=== PATIENT | male | born 1945 | race Caucasian/White ===

== ENCOUNTER 2019-02-01 10:14 | Emergency (ER) | payer MEDICARE ==
[~2019-02-01] VITALS: Ht 185.4 cm; Wt 109.0 kg
--- NOTE | 2019-02-01 10:15 | NUR ---
PT CHECKED IN WITH REGISTRATION AND STATES HAS TO GO TO THE BATHROOM, PT GIVEN SAMPLE CUP TO PROVIDE URINE.
[2019-02-01] MEDS ORDERED: normal saline 1000ML IV soln IVB ONE (11:00)
[2019-02-01 11:38] LABS: BASOPHILS # (AUTO) 0.2 X10'3 (0-0.2); BASOPHILS % (AUTO) 0.6 % (0-1); EOSINOPHILS # (AUTO) 0.2 X10'3 (0-0.9); EOSINOPHILS % (AUTO) 0.7 % (0-6); HEMOGLOBIN 12.7 g/dl (14.0-17.9); LYMPHOCYTES # (AUTO) 1.2 X10'3 (1.1-4.8); LYMPHOCYTES % (AUTO) 4.3 % (21-51); MEAN CORPUSCULAR HGB CONC 33.4 g/dL (33.0-36.5); MEAN CORPUSCULAR VOLUME 89.9 FL (78-98); MEAN PLATELET VOLUME 9.1 FL (7.4-10.4); MONOCYTES # (AUTO) 2.2 X10'3 (0-0.9); MONOCYTES % (AUTO) 7.6 % (2-12); NEUTROPHILS # (AUTO) 24.7 X10'3 (1.8-7.7); NEUTROPHILS % (AUTO) 86.8 % (42-75); PLATELET COUNT 274 X10'3 (140-440); RED BLOOD COUNT 4.23 X10'6 (4.70-6.10)
[2019-02-01 11:41] LABS: WHITE BLOOD COUNT 28.4 X10'3 (4.5-11.0)
[2019-02-01 11:50] LABS: ALANINE AMINOTRANSFERASE 35 U/L (12-78); ALBUMIN 2.4 G/DL (3.4-5.0); ALBUMIN/GLOBULIN RATIO 0.5 (1.1-1.5); ALKALINE PHOSPHATASE 141 IU/L (46-116); ANION GAP 11 (8-16); ASPARTATE AMINO TRANSFERASE 23 U/L (10-37); BLOOD UREA NITROGEN 11 MG/DL (7-18); BUN/CREATININE RATIO 12.1 (5.4-32.0); CALCIUM 9.3 MG/DL (8.5-10.1); CHLORIDE 96 MMOL/L (99-107); CREATININE 0.91 MG/DL (0.60-1.10); GLUCOSE 342 MG/DL (70-104); LIPASE 186 U/L (73-393); SODIUM 133 MMOL/L (135-145); TOTAL CARBON DIOXIDE 26.3 MMOL/L (24-32); TOTAL PROTEIN 6.8 G/DL (6.4-8.2); eGFR 82 ML/MIN
[2019-02-01 11:55] LABS: HEMOGLOBIN A1C 10.4 % (4.5-6.2)
[2019-02-01 11:57] LABS: ANISOCYTOSIS 1+; PLATELET ESTIMATE NORMAL; TOTAL CELLS COUNTED 100
[2019-02-01 12:18] LABS: CLARITY,URINE CLOUDY (Clear); COLOR,URINE YELLOW (Yellow); GLUCOSE, URINE 500 mg/dl (Neg); KETONES,URINE 40 mg/dl (Neg); LEUKOCYTE ESTERASE ,URINE NEGATIVE (Neg); NITRITES, URINE NEGATIVE (Neg); OCCULT BLOOD,URINE NEGATIVE (Neg); PH,URINE 5.5 (4.8-8.0); PROTEIN,URINE TRACE mg/dl (Neg)
[2019-02-01 12:23] LABS: UA COLLECTION TYPE CLN CATCH MIDSTREAM
[2019-02-01 12:24] LABS: AMORPHOUS URATES 4+; BACTERIA,URINE NONE SEEN /HPF (Neg); MUCUS STRANDS FEW /LPF (Neg); RBC,URINE NONE SEEN /HPF (0-2); SQUAMOUS EPITHELIAL CELL,UR NONE SEEN /LPF (FEW); WBC,URINE NONE SEEN /HPF (0-4)
[2019-02-01] MEDS ORDERED: iohexol 300mg/ml 100ml inj. ONE (13:48)
[2019-02-01] MEDS ORDERED: CefTRIAXone 250MG inj IM ONE (14:05)
[2019-02-01] MEDS ORDERED: CefTRIAXone 250MG IM Kit w/LIDOcaine IM ONE (14:15)
[2019-02-01] MEDS ORDERED: NO HOME MEDS (15:03)
[2019-02-01] MEDS ORDERED: insulin regular, human 10 units/0.1 ml syringe IV ONE (18:50)
--- NOTE | 2019-02-01 21:30 | NUR ---
PT PLACED ON HOSPITAL BED FOR COMFORT
--- NOTE | 2019-02-02 00:05 | NUR ---
NOTIFIED NORA CEVALLOS OF PT BG 302. NORA ORDERED HYPERGLYCEMIA PROTOCOL
[2019-02-02] MEDS ORDERED: dextrose 50%-water 50ml dispensing syringe IV PRN ×2 (00:10)
[2019-02-02] MEDS ORDERED: dextrose ORAL solution 15 GM/59 ML bottle PO PRN ×2 (00:10)
[2019-02-02] MEDS ORDERED: glucagon, human recombinant 1mg kit SUBCUT PRN (00:10)
[2019-02-02] MEDS: insulin Lispro (HumaLOG) vial - multi-dose SQ SCH ×3 (00:53→13:38)
--- NOTE | 2019-02-02 02:15 | NUR ---
PT CONTINUES TO TAKE OFF VS MONITORS DESPITE BEING TOLD TO KEEP ON.
--- NOTE | 2019-02-02 04:15 | NUR ---
PT SLEEPING, RR 14, EVEN AND UNLABORED
--- NOTE | 2019-02-02 05:59 | NUR ---
PT SLEEPING, NO APPARENT DISTRESS
--- NOTE | 2019-02-02 11:46 | NUR ---
I SPOKE WITH NIKKI ARZOLA E.D., WHO REQUESTS UPDATE ON PENDING ACUTE TRANSFER TO [place]. PATIENT HAS BEEN ACCEPTED BY DR ROSEN, [facility]. I SPOKE WITH DARLINE [phone], AT [facility]. SHE STATES THAT SHE HAS RECEIVED CLINICAL PACKET, AND REQUESTS UPDATED VITAL SIGNS, AND LABS, IF ANY. I FAXED UPDATED VS, AND BLOOD GLUCOSE LEVELS TO [phone]. SHE STATES THAT BED HAS BEEN REQUESTED, AND SHE WILL CALL ME WITH UPDATES. DISCUSSED WITH BETINA. WILL CONTINUE TO FOLLOW.
[2019-02-02 12:02] LABS: BASOPHILS # (AUTO) 0.1 X10'3 (0-0.2); BASOPHILS % (AUTO) 0.5 % (0-1); EOSINOPHILS # (AUTO) 0.1 X10'3 (0-0.9); EOSINOPHILS % (AUTO) 0.4 % (0-6); HEMATOCRIT 39.6 % (42.0-52.0); HEMOGLOBIN 12.6 g/dl (14.0-17.9); LYMPHOCYTES # (AUTO) 1.2 X10'3 (1.1-4.8); LYMPHOCYTES % (AUTO) 4.4 % (21-51); MEAN CORPUSCULAR HEMOGLOBIN 29.1 PG (27.0-31.0); MEAN CORPUSCULAR HGB CONC 31.9 g/dL (33.0-36.5); MEAN CORPUSCULAR VOLUME 91.4 FL (78-98); MONOCYTES # (AUTO) 1.8 X10'3 (0-0.9); MONOCYTES % (AUTO) 6.6 % (2-12); NEUTROPHILS # (AUTO) 24.6 X10'3 (1.8-7.7); NEUTROPHILS % (AUTO) 88.1 % (42-75); PLATELET COUNT 285 X10'3 (140-440); RED BLOOD COUNT 4.33 X10'6 (4.70-6.10)
[2019-02-02 12:09] LABS: WHITE BLOOD COUNT 27.9 X10'3 (4.5-11.0)
[2019-02-02 12:14] LABS: ALANINE AMINOTRANSFERASE 34 U/L (12-78); ALBUMIN 2.4 G/DL (3.4-5.0); ALBUMIN/GLOBULIN RATIO 0.6 (1.1-1.5); ALKALINE PHOSPHATASE 148 IU/L (46-116); ANION GAP 9 (8-16); ASPARTATE AMINO TRANSFERASE 27 U/L (10-37); BLOOD UREA NITROGEN 9 MG/DL (7-18); BUN/CREATININE RATIO 9.1 (5.4-32.0); CALCIUM 9.3 MG/DL (8.5-10.1); CHLORIDE 95 MMOL/L (99-107); CREATININE 0.99 MG/DL (0.60-1.10); GLUCOSE 407 MG/DL (70-104); POTASSIUM 3.8 MMOL/L (3.5-5.1); SODIUM 128 MMOL/L (135-145); TOTAL CARBON DIOXIDE 23.6 MMOL/L (24-32); TOTAL PROTEIN 6.7 G/DL (6.4-8.2); eGFR 74 ML/MIN
[2019-02-02 12:59] LABS: TOTAL CELLS COUNTED 100
[2019-02-02 13:01] LABS: PLATELET ESTIMATE NORMAL; POLYCHROMASIA FEW
[2019-02-02] MEDS ORDERED: normal saline 1000ML IV soln IVB ONE (13:15)
[2019-02-02 14:16] VITALS: BP 144/77
[2019-02-02] MEDS ORDERED: piperacillin/tazo 3.375gm/50ml 50 ML IV ONE (15:45)
--- NOTE | 2019-02-02 16:51 | NUR ---
PATIENT HAS BEEN ACCEPTED AT [facility]. [address] [place] [id number] DR WHIPPLE IS THE ACCEPTING HOSPITALIST. [facility] WILL BE PICKING PATIENT UP BETWEEN 1900 AND 193. DISCUSSED WITH MARJ RUANO. IN THE EVENT THAT [facility] BECOMES OVERWHELMED WITH 911 CALLS, [facility] WILL BE CALLED. I CALLED YANDYBRYUriah AT [facility] [phone], AND NOTIFIED HER OF PICKUP TIME, AND BACKUP PLAN TO GO WITH [facility].
--- NOTE | 2019-02-02 17:21 | NUR ---
[facility] [employer]NAL [employer] SERVICE AGENT TIME BY MARIA DOLORES OLIVEROS, SCHEDULED FOR 193 HOURS
--- NOTE | 2019-02-02 19:01 | NUR ---
PT LYING IN HOSPITAL BED NO DISTRESS NOTED, NO NEEDS AT THIS TIME WILL CONTINUE TO MONITOR.
== END 2019-02-02 21:25 | disposition short-term general hospital (02) ==
LOC: ER 10:14
DX: D72.829 Elevated white blood cell count, unspecified (principal); R74.0 Nonspecific elevation of levels of transaminase and lactic acid dehydrogenase [LDH]; R16.1 Splenomegaly, not elsewhere classified; C78.7 Secondary malignant neoplasm of liver and intrahepatic bile duct; E11.9 Type 2 diabetes mellitus without complications
CPT/HCPCS: 36415; 71045; 74177; 80053; 81001; 82948; 83036; 83605; 83690; 84145; 85025; 96365; 96372; 96375; 99285; J0696; J1815; J2543; J7030; Q9967; 96361

== ENCOUNTER 2019-02-08 11:35 | Inpatient (IN) | payer MEDICARE, OTHER ==
[~2019-02-08 11:35] MED LIST: NO HOME MEDS
[2019-02-08 12:08] VITALS: BP 134/71
--- NOTE | 2019-02-08 12:11 | NUR ---
Patient in room RENÉ 356. I have received report from vernon MCMAHAN at [facility] and had the opportunity to ask questions and assume patient care.patient arrived from [place] via EMT 1130hrs.orientated to room, awaiting to see MD as wants to leave AMA. Dr Joseluis cunningham.
--- NOTE | 2019-02-08 16:04 | NUR ---
patient seen by Dr Hall and Case management. Is for DC see relevant notes. DC home with via private car in stable condition home.[id number]
== END 2019-02-08 14:49 | disposition home or self-care (01) | DRG 437 ==
LOC: SUR 3N 11:35
PROVIDERS: ADMIT Family Medicine; ATTEND Family Medicine
DX: C25.9 Malignant neoplasm of pancreas, unspecified (principal); E11.9 Type 2 diabetes mellitus without complications
CPT/HCPCS: G0378